=== PATIENT | female | born 1955 | race Asian ===

== ENCOUNTER → 2019-08-09 14:14 | Outpatient (ROUT) | payer MEDICARE, SELFPAY ==
[2019-08-09 14:44] LABS: Alanine Aminotransferase 27 IU/L (<35); Albumin 4.1 g/dL (3.5-5.0); Albumin Globulin Ratio 1.2 (1.0-2.8); Alkaline Phosphatase 145 U/L (38-126); Aspartate Aminotransferase 28 IU/L (14-36); BUN Creatinine Ratio 22.4 (6-22); Bilirubin Total 0.8 mg/dL (0.2-1.3); Blood Urea Nitrogen 17 mg/dL (7-17); Calcium 9.6 mg/dL (8.4-10.2); Carbon Dioxide 31 mmol/L (22-32); Chloride 104 mmol/L (98-107); Cholesterol 217 mg/dL (140-199); Estimated Glomerular Filt Rate > 60.0 mL/min (>60); Globulin 3.3 g/dL (1.7-4.1); Glucose 103 mg/dL (80-110); HDL Cholesterol 33 mg/dL (40-60); HEMOLYSIS < 15 (0-50); LDL Cholesterol Calculated 151 mg/dL (<100); Potassium 4.5 mmol/L (3.4-5.1); Sodium 139 mmol/L (137-145); Total Protein 7.4 g/dL (6.3-8.2); Triglycerides 164 mg/dL (35-150)
[2019-08-09 14:47] LABS: Hemoglobin A1C% w Est Avg Glu 5.7 % (4.0-6.0)
[2019-08-09 15:01] LABS: Vitamin D 25 Hydroxy (D3) 25.3 ng/mL (30.0-100.0)
[2019-08-09 15:33] LABS: Vitamin B12 336 pg/mL (239-931)
[2019-08-10 08:09] LABS: Insulin Level Total 7.3 uIU/mL (2.6-24.9)
== END ==
PROVIDERS: Visit Provider Internal Medicine
DX: E89.0 Postprocedural hypothyroidism (principal); E66.9 Obesity, unspecified; R53.83 Other fatigue; H35.00 Unspecified background retinopathy; G62.9 Polyneuropathy, unspecified; R73.9 Hyperglycemia, unspecified; E55.9 Vitamin D deficiency, unspecified
CPT/HCPCS: 80053; 80061; 82306; 82607; 83036; 83525

== ENCOUNTER → 2020-03-27 18:54 | Outpatient (ROUT) | payer MEDICARE, SELFPAY ==
[2020-03-27 19:13] LABS: HEMOLYSIS < 15 (0-50); Iron 35 ug/dL (37-170)
[2020-03-27 19:15] LABS: Hemoglobin A1C% w Est Avg Glu 5.7 % (4.0-6.0)
[2020-03-27 19:17] LABS: Add Manual Diff / Slide Review NO; Basophils Absolute Auto 0 /uL (0-100); Basophils Percent Auto 0.5 % (0-2); Eosinophils Absolute Auto 100 /uL (0-450); Eosinophils Percent Auto 1.1 % (2-4); Hematocrit 42.6 % (36-46); Hemoglobin 13.8 g/dL (12.0-16.0); Lymphocytes Absolute Auto 3000 /uL (1100-4500); Lymphocytes Percent Auto 35.2 % (25-40); Mean Corpuscular HGB Conc 32.4 % (30-36); Mean Corpuscular Hemoglobin 27.2 PG (26-34); Mean Corpuscular Volume 83.7 fL (80-100); Monocytes Absolute Auto 400 /uL (0-900); Monocytes Percent Auto 5.1 % (3-14); Neutrophils Absolute Auto 4900 /uL (1500-7000); Neutrophils Percent Auto 58.1 % (50-75); Platelet Count 275 X10^3/uL (150-400); Red Blood Cell Count 5.08 X10^6/uL (4.0-5.2); White Blood Cell Count 8.5 X10^3/uL (4.5-11.0)
[2020-03-27 19:24] LABS: Percent Iron Saturation 11 % (15-50); Total Iron Binding Capacity 320 ug/dL (265-497); Transferrin 240 mg/dL (206-381)
[2020-03-27 19:26] LABS: Alanine Aminotransferase 42 IU/L (<35); Albumin 3.7 g/dL (3.5-5.0); Albumin Globulin Ratio 1.1 (1.0-2.8); Alkaline Phosphatase 156 U/L (38-126); Aspartate Aminotransferase 37 IU/L (14-36); Bilirubin Total 0.9 mg/dL (0.2-1.3); Blood Urea Nitrogen 18 mg/dL (7-17); Calcium 8.9 mg/dL (8.4-10.2); Carbon Dioxide 29 mmol/L (22-32); Chloride 105 mmol/L (98-107); Cholesterol 235 mg/dL (140-199); Estimated Glomerular Filt Rate > 60.0 mL/min (>60); Globulin 3.4 g/dL (1.7-4.1); Glucose 89 mg/dL (80-110); HDL Cholesterol 51 mg/dL (40-60); HEMOLYSIS < 15 (0-50); LDL Cholesterol Calculated 161 mg/dL (<100); Potassium 3.7 mmol/L (3.4-5.1); Sodium 139 mmol/L (137-145); Total Protein 7.1 g/dL (6.3-8.2); Triglycerides 114 mg/dL (35-150)
[2020-03-27 19:44] LABS: TSH w/ Reflex to FT4 2.78 uIU/mL (0.47-4.68); Vitamin D 25 Hydroxy (D3) 18.6 ng/mL (30.0-100.0)
[2020-03-27 20:01] LABS: Ferritin 164 ng/mL (11-264)
== END ==
PROVIDERS: Visit Provider Physician Assistant
DX: R06.00 Dyspnea, unspecified (principal); E55.9 Vitamin D deficiency, unspecified; E78.00 Pure hypercholesterolemia, unspecified; E66.9 Obesity, unspecified
CPT/HCPCS: 80053; 80061; 82306; 82728; 83036; 83540; 83550; 84443; 85025

== ENCOUNTER → 2020-07-22 11:10 | Outpatient (CLI) | payer OTHER, SELFPAY ==
[2020-07-22 13:06] LABS: COVID19 -Nasal RAPID Negative (Negative)
== END ==
PROVIDERS: Visit Provider Physician Assistant
DX: Z01.812 Encounter for preprocedural laboratory examination (principal); Z20.822 Contact with and (suspected) exposure to COVID-19
CPT/HCPCS: 87635; C9803

== ENCOUNTER → 2020-07-23 10:35 | Outpatient (CLI) | payer OTHER, SELFPAY ==
--- NOTE | 2020-07-24 14:03 | DI.NM.S_ITS ---
PROCEDURE PERFORMED: Exercise treadmill stress and rest myocardial perfusion imaging with gating to assess ejection fraction and regional wall motion. DATE OF SERVICE: 07/23/2020. ORDERING PROVIDER: Angeles Presley PA-C INDICATIONS: The patient is a 65-year-old female with exertional dyspnea and an abnormal treadmill test. EXERCISE TREADMILL TESTING: The patient was able to exercise for 7 minutes 1 second on a standard Ang protocol suggesting good exercise capacity with an DEBBY of -11%. She had a normal heart rate and blood pressure response, achieving a maximum heart rate of 162 BPM (105% of her predicted maximum). She had no chest discomfort. Her resting ECG is normal. There were no significant ST-segment shifts with exercise. There was a rare isolated PVC in recovery, but otherwise no arrhythmias. At 5 minutes 57 seconds of exercise at a heart rate of 146 BPM, 24.6 millicuries of technetium-99m Myoview was injected and the patient was imaged 15 minutes later using a gated SPECT acquisition protocol. She returned the following day and was reinjected with an additional 23.6 millicuries of technetium-99m Myoview was imaged 30 minutes later, again using a gated SPECT acquisition protocol. FINDINGS: RAW DATA: There is fairly good myocardial tracer uptake. Moderate breast shadows are noted. Lung/heart ratio was normal at 0.34 with a normal TID ratio of 0.98. QUANTITATED GATED SPECT: Post-stress ejection fraction is estimated at 79% without any focal wall motion abnormality and specifically the anterior wall has normal contractility. The resting ejection fraction is estimated at 68% with a normal resting end-diastolic volume of 90 mL. MYOCARDIAL PERFUSION IMAGING: Post-stress supine images shows a fairly normal myocardial perfusion pattern although with a mild perfusion defect in the mid anterior wall in a pattern that would be most consistent with breast attenuation artifact, supported by its complete resolution on the prone images, revealing a completely normal perfusion pattern. The resting images show a similar perfusion pattern without any improvement in the anterior defect. IMPRESSION: 1. Probable normal myocardial perfusion study. 2. Mild fixed mid anterior perfusion defect, likely reflecting breast attenuation artifact given its resolution on the prone images. While previous nontransmural infarction cannot be entirely excluded, it is not likely given the absence of any regional wall motion abnormality in that distribution and resolution of the defect on prone imaging. There is no evidence for any myocardial ischemia. 3. Normal left ventricular systolic function without any focal wall motion abnormality. 4. Good exercise capacity without angina or ECG evidence of ischemia. Rika Hutchins - CITLALY/anjelica/kellie doc#: [id number]/job#: [id number] dd: 07/24/2020 13:14:00 dt: 07/24/2020 13:51:00 DICTATING /COPIES TO: Jason Robles MD COPIES MNE: [place];
== END ==
PROVIDERS: Referring Provider Student in an Organized Health Care Education/Training Program; Visit Provider Student in an Organized Health Care Education/Training Program
DX: R94.39 Abnormal result of other cardiovascular function study (principal); R06.09 Other forms of dyspnea
CPT/HCPCS: 78452; 93017; A9502

== ENCOUNTER → 2020-09-03 15:04 | Outpatient (CLI) | payer OTHER, SELFPAY | PROVIDERS: PCP Student in an Organized Health Care Education/Training Program; Referring Provider Student in an Organized Health Care Education/Training Program; Visit Provider Student in an Organized Health Care Education/Training Program | DX: N95.9 Unspecified menopausal and perimenopausal disorder (principal); M85.862 Other specified disorders of bone density and structure, left lower leg; M85.861 Other specified disorders of bone density and structure, right lower leg | CPT/HCPCS: 77080 ==

== ENCOUNTER → 2020-09-10 15:33 | Outpatient (ROUT) | payer OTHER, SELFPAY ==
[2020-09-10 16:14] LABS: Add Manual Diff / Slide Review NO; Basophils Absolute Auto 0 /uL (0-100); Basophils Percent Auto 0.4 % (0-2); Eosinophils Absolute Auto 200 /uL (0-450); Eosinophils Percent Auto 2.4 % (2-4); Hematocrit 41.3 % (36-46); Hemoglobin 13.3 g/dL (12.0-16.0); Lymphocytes Absolute Auto 2400 /uL (1100-4500); Lymphocytes Percent Auto 31.5 % (25-40); Mean Corpuscular HGB Conc 32.3 % (30-36); Mean Corpuscular Volume 86.7 fL (80-100); Monocytes Absolute Auto 300 /uL (0-900); Monocytes Percent Auto 4.2 % (3-14); Neutrophils Absolute Auto 4700 /uL (1500-7000); Neutrophils Percent Auto 61.5 % (50-75); Platelet Count 306 X10^3/uL (150-400); Red Blood Cell Count 4.77 X10^6/uL (4.0-5.2); Red Cell Distribution Width 13.4 % (11.6-14.8); White Blood Cell Count 7.6 X10^3/uL (4.5-11.0)
[2020-09-10 16:16] LABS: HEMOLYSIS < 15 (0-50); Iron 83 ug/dL (37-170)
[2020-09-10 16:22] LABS: Alanine Aminotransferase 23 IU/L (<35); Albumin 3.8 g/dL (3.5-5.0); Albumin Globulin Ratio 1.2 (1.0-2.8); Alkaline Phosphatase 161 U/L (38-126); Aspartate Aminotransferase 28 IU/L (14-36); BUN Creatinine Ratio 28.2 (6-22); Bilirubin Total 0.8 mg/dL (0.2-1.3); Blood Urea Nitrogen 22 mg/dL (7-17); Calcium 9.3 mg/dL (8.4-10.2); Carbon Dioxide 28 mmol/L (22-32); Chloride 107 mmol/L (98-107); Estimated Glomerular Filt Rate > 60.0 mL/min (>60); Gamma Glutamyl Transpeptidase 89 U/L (12-43); Globulin 3.1 g/dL (1.7-4.1); Glucose 92 mg/dL (80-110); HEMOLYSIS < 15 (0-50); Potassium 4.4 mmol/L (3.4-5.1); Sodium 140 mmol/L (137-145); Total Protein 6.9 g/dL (6.3-8.2)
[2020-09-10 16:30] LABS: Percent Iron Saturation 26 % (15-50); Total Iron Binding Capacity 323 ug/dL (265-497); Transferrin 258 mg/dL (206-381)
[2020-09-10 17:52] LABS: Vitamin D 25 Hydroxy (D3) 33.9 ng/mL (30.0-100.0)
[2020-09-11 08:10] LABS: Parathyroid Hormone Int 78 pg/mL (15-65)
== END ==
PROVIDERS: PCP Student in an Organized Health Care Education/Training Program; Visit Provider Student in an Organized Health Care Education/Training Program
DX: E03.9 Hypothyroidism, unspecified (principal); R74.8 Abnormal levels of other serum enzymes; E61.1 Iron deficiency; R06.00 Dyspnea, unspecified; R53.83 Other fatigue; E55.9 Vitamin D deficiency, unspecified
CPT/HCPCS: 80053; 82306; 82977; 83540; 83550; 83970; 85025

== ENCOUNTER → 2020-09-21 08:20 | Outpatient (CLI) | payer OTHER, SELFPAY ==
--- NOTE | 2020-09-21 | DI.US.S_ITS ---
PROCEDURE: US ABDOMEN COMPLETE INDICATIONS: ELEVATED LIVER ENZYMES TECHNIQUE: Real-time scanning was performed of the abdominal and retroperitoneal organs, with image documentation. COMPARISON: None. FINDINGS: Liver: The liver demonstrates normal size. The liver demonstrates generalized mildly increased echogenicity. This decreases ultrasound sensitivity for detection of hepatic masses. The main portal vein demonstrates normal size and demonstrates normal appearing, hepatopetal flow. Gallbladder: No findings of gallstones or sludge are seen. The gallbladder wall is not thickened, measuring 3 mm or less. No specific pericholecystic fluid is seen. The sonographic Kelly sign is negative. Biliary ducts: Intrahepatic bile ducts are non-dilated. Extrahepatic bile duct caliber measures 6 mm. Normal is 6-7 mm or less in diameter, or 10 mm or less post-cholecystectomy. Pancreas: Visualized portions of the pancreas are sonographically normal. Spleen: Spleen is normal in size and homogeneous in echotexture. Kidneys: Kidneys are normal in size and echotexture. Right kidney measures 9.6 cm long; left kidney measures 9.7 cm long. No hydronephrosis or nephrolithiasis. No solid masses. Aorta: Visualized aorta is normal in caliber at less than 3 cm. Iliacs: Proximal common iliac arteries are normal in caliber at less than 2.5 cm. IVC: Intrahepatic inferior vena cava is patent. Miscellaneous: No free abdominal fluid. This study is limited by body habitus and bowel gas. IMPRESSION: The liver demonstrates increased echogenicity. This finding is nonspecific, yet it is most commonly attributed to fatty infiltration. The gallbladder demonstrates a normal sonographic appearance. No biliary dilatation is seen. Dictated by: Sukhdeep Chan M.D. on 09/21/2020 at 8:45 Approved by: Sukhdeep Chan M.D. on 09/21/2020 at 8:46
== END ==
PROVIDERS: PCP Student in an Organized Health Care Education/Training Program; Referring Provider Student in an Organized Health Care Education/Training Program; Visit Provider Student in an Organized Health Care Education/Training Program
DX: R74.8 Abnormal levels of other serum enzymes (principal)
CPT/HCPCS: 76700

== ENCOUNTER → 2020-12-19 08:16 | Outpatient (CLI) | payer OTHER, SELFPAY ==
[2020-12-19 10:29] LABS: Add Manual Diff / Slide Review NO; Basophils Absolute Auto 0 /uL (0-100); Basophils Percent Auto 0.5 % (0-2); Eosinophils Absolute Auto 100 /uL (0-450); Eosinophils Percent Auto 1.7 % (2-4); Hematocrit 41.7 % (36-46); Hemoglobin 13.9 g/dL (12.0-16.0); Lymphocytes Absolute Auto 2800 /uL (1100-4500); Lymphocytes Percent Auto 38.8 % (25-40); Mean Corpuscular HGB Conc 33.2 % (30-36); Mean Corpuscular Hemoglobin 27.8 PG (26-34); Mean Corpuscular Volume 83.7 fL (80-100); Monocytes Absolute Auto 300 /uL (0-900); Monocytes Percent Auto 4.5 % (3-14); Neutrophils Absolute Auto 3900 /uL (1500-7000); Neutrophils Percent Auto 54.5 % (50-75); Platelet Count 292 X10^3/uL (150-400); Red Blood Cell Count 4.98 X10^6/uL (4.0-5.2); Red Cell Distribution Width 14.1 % (11.6-14.8); White Blood Cell Count 7.1 X10^3/uL (4.5-11.0)
[2020-12-19 10:45] LABS: Alanine Aminotransferase 20 IU/L (<35); Albumin 3.7 g/dL (3.5-5.0); Albumin Globulin Ratio 1.1 (1.0-2.8); Alkaline Phosphatase 129 U/L (38-126); Aspartate Aminotransferase 26 IU/L (14-36); Bilirubin Total 0.9 mg/dL (0.2-1.3); Blood Urea Nitrogen 17 mg/dL (7-17); Calcium 8.9 mg/dL (8.4-10.2); Carbon Dioxide 27 mmol/L (22-32); Chloride 106 mmol/L (98-107); Estimated Glomerular Filt Rate > 60.0 mL/min (>60); Globulin 3.3 g/dL (1.7-4.1); Glucose 100 mg/dL (80-110); HEMOLYSIS < 15 (0-50); Potassium 3.9 mmol/L (3.4-5.1); Sodium 138 mmol/L (137-145)
[2020-12-20 10:58] LABS: Alpha Fetoprotein 5.2 ng/mL (0.0-8.3); HBsAg Screen Negative (Negative); Hepatitis A Antibody IgM Negative (Negative); Hepatitis B Core Antibody IgM Negative (Negative); Hepatitis C Antibody 0.1 s/co ratio (0.0-0.9)
== END ==
PROVIDERS: PCP Student in an Organized Health Care Education/Training Program; Referring Provider Physician Assistant; Visit Provider Physician Assistant
DX: K76.0 Fatty (change of) liver, not elsewhere classified (principal); K76.5 Hepatic veno-occlusive disease
CPT/HCPCS: 36415; 80053; 80074; 82105; 82172; 82247; 82465; 82947; 82977; 83010; 83883; 84450; 84460; 84478; 85025

== ENCOUNTER → 2021-04-09 10:12 | Outpatient (CLI) | payer OTHER, SELFPAY ==
[2021-04-09 10:53] LABS: Add Manual Diff / Slide Review NO; Basophils Absolute Auto 0 /uL (0-100); Basophils Percent Auto 0.7 % (0-2); Eosinophils Absolute Auto 200 /uL (0-450); Eosinophils Percent Auto 3.2 % (2-4); Hematocrit 41.1 % (36-46); Hemoglobin 13.5 g/dL (12.0-16.0); Lymphocytes Absolute Auto 2300 /uL (1100-4500); Lymphocytes Percent Auto 42.6 % (25-40); Mean Corpuscular Hemoglobin 27.6 PG (26-34); Mean Corpuscular Volume 83.6 fL (80-100); Monocytes Absolute Auto 200 /uL (0-900); Monocytes Percent Auto 4.2 % (3-14); Neutrophils Absolute Auto 2600 /uL (1500-7000); Neutrophils Percent Auto 49.3 % (50-75); Platelet Count 302 X10^3/uL (150-400); Red Blood Cell Count 4.91 X10^6/uL (4.0-5.2); Red Cell Distribution Width 13.9 % (11.6-14.8); White Blood Cell Count 5.3 X10^3/uL (4.5-11.0)
[2021-04-09 12:07] LABS: Alanine Aminotransferase 23 IU/L (<35); Albumin 4.1 g/dL (3.5-5.0); Albumin Globulin Ratio 1.3 (1.0-2.8); Alkaline Phosphatase 129 U/L (38-126); Aspartate Aminotransferase 25 IU/L (14-36); BUN Creatinine Ratio 19.8 (6-22); Blood Urea Nitrogen 16 mg/dL (7-17); Calcium 9.2 mg/dL (8.4-10.2); Carbon Dioxide 28 mmol/L (22-32); Chloride 105 mmol/L (98-107); Estimated Glomerular Filt Rate > 60.0 mL/min (>60); Globulin 3.1 g/dL (1.7-4.1); Glucose 96 mg/dL (80-110); HEMOLYSIS < 15 (0-50); Sodium 141 mmol/L (137-145); Total Protein 7.2 g/dL (6.3-8.2)
[2021-04-10 03:49] LABS: HBsAg Screen Negative (Negative); Hepatitis A Antibody IgM Negative (Negative); Hepatitis B Core Antibody IgM Negative (Negative); Hepatitis C Antibody <0.1 s/co ratio (0.0-0.9)
[2021-04-10 09:48] LABS: Alpha Fetoprotein 4.7 ng/mL (0.0-8.3)
== END ==
PROVIDERS: PCP Student in an Organized Health Care Education/Training Program; Referring Provider Physician Assistant; Visit Provider Physician Assistant
DX: K76.0 Fatty (change of) liver, not elsewhere classified (principal)
CPT/HCPCS: 36415; 80053; 80074; 82105; 82172; 82247; 82465; 82947; 82977; 83010; 85025

== ENCOUNTER → 2021-09-29 11:03 | Outpatient (CLI) | payer MEDICARE, SELFPAY ==
--- NOTE | 2021-09-29 | DI.MRI.S_ITS ---
PROCEDURE: MR LUMBAR SPINE WO CON INDICATIONS: Spinal stenosis, lumbar region TECHNIQUE: Noncontrast sagittal T1 spin echo and T2 fast echo, sagittal STIR, and T2 fast spin echo through the lumbar spine. In cases with scoliosis, additional coronal T2 fast spin echo may be performed. COMPARISON: None. FINDINGS: Image quality: Excellent. Alignment and Curvature: Mild 2 mm grade 1 retrolisthesis of L2 on L3 and of L3 on L4. There is approximately 3 mm anterolisthesis of L4 on L5. 1 mm and retrolisthesis of L5 on S1. Bone Marrow: No suspicious marrow replacing process. Osseous edema is seen surrounding the L1-2 disc space, consistent with Modic type 1 degenerative endplate changes. Modic type 2 degenerative endplate changes are seen at the L5-S1 level. No acute vertebral body compression fractures. Spinal Cord: Conus medullaris terminates at the L1-2 disc space level. Visualized cord demonstrates normal signal and size. Paraspinous Soft Tissues: No paravertebral masses. There is grade 2 fatty infiltration of the paraspinous musculature. T12-L1: No significant disc bulging, spinal canal stenosis, or neural foraminal narrowing. L1-L2: Disc desiccation and loss of disc space height with Modic type 1 degenerative endplate changes and mild circumferential disc-osteophyte complex as well as minimal left facet hypertrophy. Findings do not result in significant spinal canal stenosis or neural foraminal narrowing. L2-L3: Disc desiccation and loss of disc space height with mild circumferential disc bulging and buckling of the ligamentum flavum, which results in mild narrowing of the spinal canal without significant neural foraminal narrowing. L3-L4: Disc desiccation loss of disc space height with mild circumferential disc bulging, moderate bilateral facet hypertrophy, and buckling of the ligamentum flavum, which results in mild to moderate narrowing of the spinal canal and minimal narrowing of the left neural foramen. L4-L5: Disc desiccation with mild uncovering of the disc space and severe bilateral facet hypertrophy as well as mild buckling of the ligamentum flavum, which results in moderate spinal canal narrowing and mild crowding of the lateral recesses as well as mild left neural foraminal narrowing without significant right neural foraminal narrowing. L5-S1: Disc desiccation and loss of disc space height with posterior and right lateral disc-osteophyte complex as well as moderate bilateral facet hypertrophy result in moderate right and mild left neural foraminal narrowing without significant spinal canal stenosis. IMPRESSION: 1. At L4-5, degenerative disc disease, severe bilateral facet hypertrophy, and mild 3 mm grade 1 anterolisthesis of L4 on L5 result in moderate narrowing of the spinal canal and mild left neural foraminal narrowing without right neural foraminal stenosis. 2. Additional [id number] multilevel degenerative disc disease and facet hypertrophy as described in detail in the body of the report. No high-grade spinal canal stenosis or neural foraminal narrowing. 3. Modic type 1 degenerative endplate changes are seen surrounding the L1-2 disc space, which can be associated with pain. Dictated by: Td Carpio M.D. on 09/29/2021 at 12:31 Approved by: Td Carpio M.D. on 09/29/2021 at 12:42
== END ==
PROVIDERS: PCP Student in an Organized Health Care Education/Training Program; Referring Provider Physical Medicine & Rehabilitation; Visit Provider Physical Medicine & Rehabilitation
DX: M48.061 Spinal stenosis, lumbar region without neurogenic claudication (principal); M51.36 Other intervertebral disc degeneration, lumbar region; M43.16 Spondylolisthesis, lumbar region
CPT/HCPCS: 72148

== ENCOUNTER → 2022-08-11 12:00 | Outpatient (CLI) | payer OTHER, SELFPAY ==
--- NOTE | 2022-08-11 | DI.US.S_ITS ---
PROCEDURE: US ABDOMEN LIMITED INDICATIONS: ABDOMINAL WALL MASS TECHNIQUE: Real-time focused scanning was performed of the abdomen, with image documentation. COMPARISON: [facility], , US ABDOMEN COMPLETE, 09/21/2020, 8:36. FINDINGS: Fat and bowel containing ventral wall hernia, non reducible. The hernia sac measures 10.5 x 5.0 x 11.3 cm, and the wall defect measures 3.8 x 3.1 cm. IMPRESSION: Non reducible ventral wall hernia containing fat and bowel. Dictated by: Artie Rowe M.D. on 08/11/2022 at 13:02 Approved by: Artie Rowe M.D. on 08/11/2022 at 13:04
== END ==
PROVIDERS: PCP Student in an Organized Health Care Education/Training Program; Referring Provider Student in an Organized Health Care Education/Training Program; Visit Provider Student in an Organized Health Care Education/Training Program
DX: K43.6 Other and unspecified ventral hernia with obstruction, without gangrene (principal); R22.2 Localized swelling, mass and lump, trunk
CPT/HCPCS: 76705

== ENCOUNTER → 2023-02-13 14:44 | Outpatient (CLI) | payer OTHER, SELFPAY ==
--- NOTE | 2023-02-13 14:46 | DI.ECHO.S_ITS ---
[facility]---------+ [facility] +---------+ : : [address] : [place] [address] : : : : [phone] : : : : Phone: [phone]+ Echocardiogram Report + + :Name: IRWIN HUERTA Study Date: 02/13/2023 Height: 66 in : :[facility] ReadingLocation: Weight: 183 lb : : Gender: Female BSA: 1.9 m2 : :: 1955 Age: 67 yrs BP: 112/89 mmHg: :Reason For Study: Shortness of Breath : :Ordering Physician: HOLLAND, : :MARISOL Performed By: Lissy Scott : :Referring: MARISOL LINO : + + Interpretation Summary The ejection fraction is estimated to be 60-65%. Diastolic parameters suggest probable normal left ventricular diastolic function and normal filling pressures. The right ventricle is normal in size and function. No significant valvular abnormalities. Pulmonary artery pressures cannot be estimated because of the lack of a measurable TR jet velocity but the IVC suggests a CVP of around 3 mmHg. Procedure: A two-dimensional transthoracic echocardiogram with color flow and Doppler was performed. The study quality was technically adequate. There is no prior echocardiogram noted for this patient. The patient was in normal sinus rhythm during the exam. Left Ventricle: The left ventricle is normal in size and wall thickness. The ejection fraction is estimated to be 60-65%. Diastolic parameters suggest probable normal left ventricular diastolic function and normal filling pressures. Right Ventricle: The right ventricle is normal in size and function. Atria: The left atrial size is normal. Right atrial size is normal. There is no Doppler evidence for an interatrial shunt. Mitral Valve: The mitral valve is normal. There is no mitral valve stenosis. There is trace mitral regurgitation. Aortic Valve: The aortic valve is trileaflet. The aortic valve opens well. There is no aortic valve stenosis. No aortic regurgitation is present. Tricuspid Valve: The tricuspid valve is normal. There is no tricuspid stenosis. There is trace tricuspid regurgitation. Pulmonary artery pressures cannot be estimated because of the lack of a measurable TR jet velocity but the IVC suggests a CVP of around 3 mmHg. Pulmonic Valve: The pulmonic valve leaflets are thin and pliable; valve motion is normal. There is no pulmonic valvular stenosis. There is trace pulmonic regurgitation. Great Vessels: The aortic root is normal size. The ascending aorta is normal in size. The pulmonary artery is normal size. The IVC is of normal diameter and collapses greater than 50% with a sniff. This suggests a low right atrial pressure of 3 mm Hg. Pericardium/ Pleura There is no pericardial effusion. There is no pleural effusion. MMode/2D Measurements & Calculations LVIDd: 4.1 cm LVOT diam: 1.6 cm LVIDs: 2.5 cm Ao root diam: 3.3 cm FS: 39.0 % asc Aorta Diam: 3.4 cm EPSS: 0.60 cm IVSd: 0.80 cm LVPWd: 0.80 cm LV nathan. diameter/BSA (cm/m^2): 2.1 LV sys. diameter/BSA (cm/m^2): 1.3 LA A2 area: 18.5 cm2 RA long axis: 4.5 cm LA A4 area: 14.9 cm2 RA area: 11.8 cm2 LA length (vol): 5.2 cm RA vol: 26.4 ml LA vol: 44.7 ml RA : 13.7 ml/m2 LA vol index: 23.2 ml/m2 RVD1 (basal): 3.3 cm LVLs ap4: 5.9 cm LVLd ap2: 7.1 cm LVLs ap2: 5.8 cm Doppler Measurements & Calculations Ao V2 max: 124.3 cm/sec LVOT Max Sigifredo: 92.8 cm/sec Ao V2 mean: 83.6 cm/sec LV V1 max P.4 mmHg Ao max P.0 mmHg LV V1 VTI: 18.2 cm Ao mean P.0 mmHg RADHA(I,D): 1.5 cm2 Ao V2 VTI: 23.9 cm RADHA(V,D): 1.5 cm2 sev ratio: 0.76 RADHA indexed to BSA (cm^2/m^2): 0.80 MV E max sigifredo: 65.1 cm/sec PA V2 max: 97.7 cm/sec MV A max sigifredo: 99.0 cm/sec PA V2 mean: 65.8 cm/sec MV E/A: 0.66 PA mean P.0 mmHg Med Peak E' Sigifredo: 4.8 cm/sec E/E' med: 13.5 Lat Peak E' Sigifredo: 7.3 cm/sec E/E' lat: 9.0 E/e' average: 11.2 MV dec time: 0.21 sec SV(LVOT): 36.6 ml AV VR_phl: 0.75 RADHA(VTI)/BSA_phl: 0.79 Reading Physician:04:22 PM
== END ==
PROVIDERS: PCP Student in an Organized Health Care Education/Training Program; Referring Provider Student in an Organized Health Care Education/Training Program; Visit Provider Student in an Organized Health Care Education/Training Program
DX: R06.02 Shortness of breath (principal); R42 Dizziness and giddiness
CPT/HCPCS: 93306

== ENCOUNTER → 2024-07-29 15:11 | Outpatient (CLI) | payer MEDICARE, SELFPAY ==
--- NOTE | 2024-07-29 15:13 | DI.US.S_ITS ---
PROCEDURE: US PELVIC COMPLETE INDICATIONS: DEEP VAGINAL PAIN, NEG VAG PAP TECHNIQUE: Real-time scanning was performed of the pelvic organs, with image documentation. Additional endovaginal scanning was necessary due to incomplete visualization of the adnexal and endometrial structures by transabdominal scanning. COMPARISON: None. FINDINGS: Uterus: Surgically absent. Ovaries: The ovaries are not seen. No adnexal masses. Other: No pathologic free abdominal or pelvic fluid. IMPRESSION: The uterus is surgically absent. The ovaries are not seen. No abnormalities are identified. We strive to produce accurate, complete, and clear reports of imaging services. To assist us in improving patient care, this report was composed using standard report templates and voice recognition software. Therefore, it may contain abnormal punctuation, insertions and/or omissions. Occasional wrong-word or sound-alike substitutions may occur. Though we review the report and make efforts to correct it, we do recommend that the report be read carefully in proper context to recognize any text inaccuracies. Dictated by: Parviz Tanner M.D. on 07/30/2024 at 9:44 Approved by: Parviz Tanner M.D. on 07/30/2024 at 9:48
== END ==
PROVIDERS: PCP Student in an Organized Health Care Education/Training Program; Referring Provider Student in an Organized Health Care Education/Training Program; Visit Provider Student in an Organized Health Care Education/Training Program
DX: R10.2 Pelvic and perineal pain (principal); Z90.710 Acquired absence of both cervix and uterus
CPT/HCPCS: 76856